=== PATIENT | female | born 2000 | race Caucasian/White ===

== ENCOUNTER 2021-06-25 19:02 | Emergency (ER) | payer OTHER, SELFPAY ==
[2021-06-25] VITALS (8 sets, daily range): BP systolic 95–122; BP diastolic 51–80; PULSE 63–82; RESP 12–38; TEMP 36.6–36.7; O2SAT 98–100
[2021-06-25] MEDS: LORazepam INJ (*CRX) 2 MG/ML VIAL IM (19:11)
--- NOTE | 2021-06-25 19:26 | ED.GENADULT ---
HPI - General Adult General Chief complaint: Anxiety Stated complaint: anxiety attack hyperventilating Time Seen by Provider: 06/25/21 19:07 Source: patient Mode of arrival: ambulatory History of Present Illness HPI narrative: 21-year-old female with history of anxiety and PTSD presenting to the emergency department for evaluation of a severe panic attack. Family states that the patient had a traumatic event that occurred approximately 1 year ago. Patient does have panic attacks daily but due to the 1 year anniversary of the traumatic event they suspect that this is the underlying reason that this panic attack was worse. Patient has been fearful and hyperventilating for an extended period of time today. EMS spent approximately 45 minutes in the house attempting to reassure the patient. Patient was having carpal spasms that were improved by placing her on a nonrebreather not on oxygen. Upon arrival to the emergency department patient was able to be consoled. She was willing to receive IM Ativan. Related Data Home Medications Medication Instructions Recorded Confirmed sertraline 50 mg PO DAILY 06/25/21 Allergies Allergy/AdvReac Type Severity Reaction Status Date / Time hydrocodone AdvReac Vomiting Verified 06/25/21 19:30 Review of Systems Review of Systems: CONSTITUTIONAL: Denies fever, chills, or sweats. EYES: Denies visual changes, redness, or discharge. ENT: Denies rhinorrhea, congestion, sore throat, or otalgia. CARDIOVASCULAR: Denies chest pain, palpitations, or edema. RESPIRATORY: Denies cough or dyspnea. GASTROINTESTINAL: Denies abdominal pain, nausea, vomiting, or diarrhea. GENITOURINARY: Denies dysuria or hematuria. SKIN: Denies rash or itching. MUSCULOSKELETAL: Denies back pain, joint pain, or myalgia. NEUROLOGIC: Denies headache, numbness, or weakness. PSYCHIATRIC: See HPI Exam Narrative: APPEARANCE: Well appearing, no pain, no distress, well-nourished. HEAD: normocephalic, atraumatic. EYES: PERRLA/EOMI, conjunctivae clear. NECK: Supple. No adenopathy, no masses. RESPIRATORY: Airway patent, respirations nonlabored. Clear to auscultation bilaterally, no rales, rhonchi, wheezing. CARDIOVASCULAR: Regular rate and rhythm without murmurs rubs or gallops. ABDOMINAL: Soft, nontender, nondistended, normal bowel sounds MUSCULOSKELETAL: Moves all extremities. Strength/ROM intact, No edema, No calf tenderness. NEURO: Alert. Cranial nerves II through XII intact. Grossly intact SKIN: Warm, dry. Normal Color PSYCHIATRIC: Very anxious and tearful Course Course Emergency Course: Patient was treated with 2 mg of IM Ativan and this helped her panic attack significantly. Patient was evaluated by the crisis counselor and will have outpatient follow-up. Both patient and mother were comfortable with the outpatient services provided. Patient does take sertraline. Patient was provided Ativan p.o. for home for breakthrough anxiety. They were educated of the possibility of dependence to benzodiazepines and they were suggested to use them sparingly. Reevaluation(s) Reevaluation #1: Patient is medically cleared to be evaluated by the crisis counselor and patient is medically cleared for inpatient psychiatric hospitalization as needed Vital Signs Vital signs: Vital Signs Temperature 97.8 F 06/25/21 19:00 Pulse Rate 63 06/25/21 19:00 Respiratory Rate 38 H 06/25/21 19:00 Blood Pressure 122/80 06/25/21 19:00 Pulse Oximetry 100 06/25/21 19:00 Temperature 98.1 F 06/25/21 23:40 Pulse Rate 80 06/25/21 23:40 Respiratory Rate 18 06/25/21 23:40 Blood Pressure 104/77 06/25/21 23:40 Pulse Oximetry 98 06/25/21 23:40 Medical Decision Making Vital Signs Vital Signs: Vital Signs Temperature 97.8 F 06/25/21 19:00 Pulse Rate 63 06/25/21 19:00 Respiratory Rate 38 H 06/25/21 19:00 Blood Pressure 122/80 06/25/21 19:00 Pulse Oximetry 100 06/25/21 19:00 Temperature 98.1 F 06/25/21 23:40
[2021-06-25] MEDS: SODIUM CHLORIDE 0.9% IV 1,000 ML 999 ML IV CONT (19:47)
[2021-06-25 19:54] LABS: Basophils Percent Auto 0.4 % (0.2-1.2); Hematocrit 43.5 % (37.0-47.0); Hemoglobin 14.5 g/dL (12.0-15.0); Immature Granulocyte Absolute 0.03 K/mm3 (0.00-0.031); Immature Granulocyte Percent A 0.3 % (0-0.5); Lymphocytes Absolute Auto 1.95 K/mm3 (0.9-3.2); Lymphocytes Percent Auto 17.2 % (18.3-44.2); Mean Corpuscular HGB Conc 33.3 g/dl (32-36); Mean Corpuscular Hemoglobin 30.5 pg (26-34); Mean Corpuscular Volume 91.6 fl (80-100); Mean Platelet Volume 9.5 fl (7.4-10.4); Monocytes Absolute Auto 0.6 K/mm3 (0.1-0.6); Monocytes Percent Auto 4.9 % (2.6-8.5); Neutrophils Absolute Auto 8.8 K/mm3 (1.3-6.7); Neutrophils Percent Auto 77.2 % (45.5-73.1); Platelet Count Result 330 k/mm3 (150-375); Red Blood Count 4.75 M/mm3 (4.2-5.4); Red Cell Distribution Width 12.7 % (11.5-14.5); White Blood Count 11.3 K/mm3 (4.5-10.0)
[2021-06-25 20:00] LABS: Bacteria Urine Trace /hpf; Mucus Urine Heavy /lpf; Squamous Epithelial Cell Urine Few /hpf (Few); WBC Urine 0-3 /hpf
[2021-06-25 20:05] LABS: Alanine Aminotransferase 14 U/L (4-35); Albumin Level 4.4 g/dL (3.5-5.1); Alkaline Phosphatase 58 U/L (38-126); Anion Gap 9 mmol/L (8-16); Aspartate Amino Transferase 27 U/L (14-36); Bilirubin,Total 1.1 mg/dL (0.2-1.3); Blood Urea Nitrogen 10 mg/dL (7-17); Calcium 8.9 mg/dL (8.4-10.2); Carbon Dioxide 22 mmol/L (22-30); Chloride 107 mmol/L (98-107); Estimated CRCL calculation 124 ml/min; Estimated Glomerular Filt Rate > 60; Glucose 99 mg/dL (65-110); Potassium 3.6 mmol/L (3.4-5.0); Sodium 138 mmol/L (137-145)
[2021-06-25 20:07] LABS: Add Urine Microscopic? YES; Appearance Urine Clear (Clear); Bilirubin Urine 1+ (Negative); Blood Urine Negative (Negative); Color Urine Yellow (Yellow); Glucose Urine UA Negative (Negative); Ketones Urine 4+ mg/dL (Negative); Leukocyte Esterase Ur Negative LEU/UL (Negative); Nitrate Urine Negative (Negative); Protein Urine 1+ mg/dL (Negative); Specific Grav Ur >= 1.030 (1.001-1.035)
[2021-06-25 20:11] LABS: Amphetamine Screen Urine Negative (Negative); Barbiturate Screen Urine Negative (Negative); Benzodiazepines Screen Urine Negative (Negative); Cannabinoid Screen Urine Positive (Negative); Cocaine Screen Urine Negative (Negative); Methadone Screen Urine Negative (Negative); Opiate Screen Urine Negative (Negative); Phencyclidine Screen Urine Negative (Negative)
[2021-06-25 20:41] LABS: Ethanol < 10 mg/dL (<10)
--- NOTE | 2021-06-25 20:45 | PC.NURSE ---
Patient scored moderate risk with columbia scale. ERP notified, no sitter needed at this time. Crisis here at facility and notified of medical clearance of patient and to have her evaluated. Patient resting comfortably on stretcher, with mother at bedside. Patient in NAD.
[2021-06-25] MEDS: LORazepam (*CRX) 0.5 MG TABLET PO (23:30)
--- NOTE | 2021-06-25 23:43 | PC.NURSE ---
crisis silk winding machine operator Varsha e-mailed this RN list of resources for pt, which was provided to pt at d/c.
== END 2021-06-25 23:43 | disposition home or self-care (01) ==
PROVIDERS: Emergency Provider Emergency Medicine
DX: F41.0 Panic disorder [episodic paroxysmal anxiety] (principal)
CPT/HCPCS: 36415; 80053; 80307; 81001; 81025; 84443; 85025; 96360; 96372; 99284; A9270; J2060; J7030

== ENCOUNTER 2021-12-29 17:00 | Emergency (ER) | payer OTHER, SELFPAY ==
[2021-12-29 17:02] VITALS: BP 102/60; PULSE 92; RESP 16; TEMP 36.8; O2SAT 100
== END 2021-12-29 17:23 | disposition left against medical advice (07) ==
LOC: ANHED 17:28
DX: R11.2 Nausea with vomiting, unspecified (principal)
CPT/HCPCS: 99199